=== PATIENT | male | born 1985 | race African-American/Black ===

== ENCOUNTER → 2016-05-02 | Outpatient (REF) | payer OTHER ==
[2016-05-02 13:27] LABS: ALBUMIN 4.1 GM/DL (3.2-5.2); ALBUMIN/GLOBULIN RATIO 1.37 (1.00-1.93); ALKALINE PHOSPHATASE 93 U/L (45-117); ALT/SGPT 35 U/L (12-78); ANION GAP 9 MEQ/L (8-16); AST/SGOT 29 U/L (15-37); BILIRUBIN,TOTAL 0.3 MG/DL (0.2-1.0); BLOOD UREA NITROGEN 9 MG/DL (7-18); CALCIUM LEVEL 8.8 MG/DL (8.5-10.1); CARBON DIOXIDE LEVEL 26 MEQ/L (21-32); CHLORIDE LEVEL 108 MEQ/L (98-107); CHOLESTEROL LEVEL 160 MG/DL (<200); GLOMERULAR FILTRATION RATE > 60.0 (>60); GLUCOSE, FASTING 104 MG/DL (70-105); POTASSIUM SERUM 4.2 MEQ/L (3.5-5.1); SODIUM LEVEL 143 MEQ/L (136-145); TOTAL PROTEIN 7.1 GM/DL (6.4-8.2); TRIGLYCERIDES LEVEL 76 MG/DL (<150)
[2016-05-03 10:56] LABS: HEPATITIS B SURFACE ANTIBODY POSITIVE (POSITIVE)
== END ==
LOC: M SFHCPLAZ 10:19
PROVIDERS: ATTEND Internal Medicine Infectious Disease
DX: B20 Human immunodeficiency virus [HIV] disease (principal); Z72.52 High risk homosexual behavior; Z13.220 Encounter for screening for lipoid disorders

== ENCOUNTER 2016-05-28 18:15 | Emergency (ER) | payer MEDICAID, OTHER, SELFPAY ==
[2016-05-28 18:17] VITALS: BP 117/70
[2016-05-28] MEDS ORDERED: CLIN1CAP5 PO (18:30)
[2016-05-28] MEDS ORDERED: IBUP600T26 PO (18:30)
[2016-05-28] MEDS ORDERED: NORCOTAB PO (19:17)
== END 2016-05-28 19:29 | disposition home or self-care (01) ==
LOC: M ED 19:26
DX: K02.9 Dental caries, unspecified (principal); R22.1 Localized swelling, mass and lump, neck; R51 Headache; Z87.891 Personal history of nicotine dependence

== ENCOUNTER 2016-07-08 15:48 | Emergency (ER) | payer MEDICAID, OTHER ==
[~2016-07-08] VITALS: Ht 177.8 cm; Wt 81.6 kg
[~2016-07-08 15:48] MED LIST: CLIN1CAP5 PO; IBUP600T26 PO; NORCOTAB PO
[2016-07-08 15:49] VITALS: BP 127/78
[2016-07-08] MEDS ORDERED: NORCOTAB PO (16:09)
[2016-07-08] MEDS ORDERED: AMOX500C PO (16:09)
[2016-07-08] MEDS ORDERED: NORCO, ANEXSIA 5/325MG TABLET (HYDROcodone/ACETAMINOPHEN) PO ONE (16:15)
== END 2016-07-08 16:41 | disposition home or self-care (01) ==
LOC: M ED 16:28
DX: K02.9 Dental caries, unspecified (principal); K13.79 Other lesions of oral mucosa; R50.9 Fever, unspecified; F17.200 Nicotine dependence, unspecified, uncomplicated

== ENCOUNTER → 2016-09-26 | Outpatient (REF) | payer OTHER ==
[~2016-09-26] MED LIST changes: +AMOX500C PO; +CHERSYP3 PO; +CLIN150C14 PO; -CLIN1CAP5 PO; +DRON5CAP6; +HYDR-3713; +IBUP-1022 PO; -IBUP600T26 PO; +PRED20TA PO; +TESS100C PO
[2016-09-26 12:16] LABS: ALBUMIN 3.8 GM/DL (3.2-5.2); ALBUMIN/GLOBULIN RATIO 1.15 (1.00-1.93); ALKALINE PHOSPHATASE 88 U/L (45-117); ALT/SGPT 26 U/L (12-78); ANION GAP 7 MEQ/L (8-16); AST/SGOT 23 U/L (15-37); BILIRUBIN,TOTAL 0.3 MG/DL (0.2-1.0); BLOOD UREA NITROGEN 10 MG/DL (7-18); CALCIUM LEVEL 8.9 MG/DL (8.5-10.1); CARBON DIOXIDE LEVEL 28 MEQ/L (21-32); CHLORIDE LEVEL 101 MEQ/L (98-107); CREATININE FOR GFR 0.83 MG/DL (0.70-1.30); GLOMERULAR FILTRATION RATE > 60.0 (>60); GLUCOSE, FASTING 98 MG/DL (70-105); POTASSIUM SERUM 3.9 MEQ/L (3.5-5.1); SODIUM LEVEL 136 MEQ/L (136-145); TOTAL PROTEIN 7.1 GM/DL (6.4-8.2)
[2016-10-01 00:06] LABS: %CD3+CD4+CD8+ 1.1 % (Not Estab.); %CD3+CD4+CD8- 30.3 % (Not Estab.); %CD3+CD4-CD8+ 49.2 % (Not Estab.); %CD3+CD4-CD8- 3.2 % (Not Estab.); ABS CD3+CD4+CD8+ 28 /uL (Not Estab.); ABS CD3+CD4+CD8- 758 /uL (Not Estab.); ABS CD3+CD4-CD8+ 1230 /uL (Not Estab.); ABS CD3+CD4-CD8- 80 /uL (Not Estab.); CD4/CD8 NYSDOH RATIO 0.62 (Not Estab.); Eosinophils 6 % (.); HCT 45.9 % (37.5-51.0); HGB 15.4 g/dL (12.6-17.7); Monocytes 6 % (.); Neutrophils 31 % (.); WBC 4.5 x10E3/uL (3.4-10.8)
== END ==
LOC: M LABDRAW1 11:28
PROVIDERS: ATTEND Internal Medicine Infectious Disease
DX: B20 Human immunodeficiency virus [HIV] disease (principal)

== ENCOUNTER → 2016-10-10 | Outpatient (REF) | payer OTHER | LOC: M SFHCPLAZ 14:25 | PROVIDERS: ATTEND Internal Medicine Infectious Disease | DX: Z02.0 Encounter for examination for admission to educational institution (principal) ==

== ENCOUNTER 2016-10-29 18:46 | Emergency (ER) | payer OTHER ==
[~2016-10-29] VITALS: Ht 182.9 cm; Wt 77.3 kg
[~2016-10-29 18:46] MED LIST changes: -CHERSYP3 PO; -DRON5CAP6; -HYDR-3713; -PRED20TA PO; -TESS100C PO
[2016-10-29 18:47] VITALS: BP 101/67
[2016-10-29] MEDS ORDERED: HYDR-3713 (18:54)
[2016-10-29] MEDS ORDERED: DRON5CAP6 (18:54)
[2016-10-29] MEDS ORDERED: IBUPROFEN 800 MG TAB PO ONE (20:45)
[2016-10-29] MEDS ORDERED: PERCOCET 5MG/325MG TAB PO ONE (20:45)
[2017-01-03] MEDS ORDERED: TESS100C PO (23:02)
[2017-01-03] MEDS ORDERED: PRED20TA PO (23:02)
[2017-01-03] MEDS ORDERED: CHERSYP3 PO (23:02)
== END 2016-10-29 21:02 | disposition home or self-care (01) ==
LOC: M ED 18:46
DX: G89.18 Other acute postprocedural pain (principal); Z98.890 Other specified postprocedural states; Z79.2 Long term (current) use of antibiotics; Z79.899 Other long term (current) drug therapy

== ENCOUNTER → 2017-01-15 | Outpatient (REF) | payer OTHER ==
[~2017-01-15] MED LIST changes: +CHERSYP3 PO; +DRON5CAP6; +HYDR-3713; +PRED20TA PO; +TESS100C PO
[2017-01-15 16:14] LABS: ALBUMIN/GLOBULIN RATIO 1.18 (1.00-1.93); ALKALINE PHOSPHATASE 92 U/L (45-117); ALT/SGPT 28 U/L (12-78); ANION GAP 7 MEQ/L (8-16); AST/SGOT 20 U/L (7-37); BILIRUBIN,TOTAL 0.4 MG/DL (0.2-1.0); BLOOD UREA NITROGEN 9 MG/DL (7-18); CALCIUM LEVEL 9.3 MG/DL (8.5-10.1); CARBON DIOXIDE LEVEL 29 MEQ/L (21-32); CHLORIDE LEVEL 104 MEQ/L (98-107); CREATININE FOR GFR 1.01 MG/DL (0.70-1.30); GLOMERULAR FILTRATION RATE > 60.0 (>60); GLUCOSE, FASTING 74 MG/DL (70-105); POTASSIUM SERUM 3.9 MEQ/L (3.5-5.1); SODIUM LEVEL 140 MEQ/L (136-145); TOTAL PROTEIN 7.4 GM/DL (6.4-8.2)
[2017-01-17 10:32] LABS: Eosinophils 2 % (Not Estab.); HCT 42.1 % (37.5-51.0); HGB 14.5 g/dL (12.6-17.7); Monocytes 8 % (Not Estab.); Neutrophils 49 % (Not Estab.); WBC 9.1 x10E3/uL (3.4-10.8)
== END ==
LOC: M SFHCPLAZ 14:53
PROVIDERS: ATTEND Internal Medicine Infectious Disease
DX: B20 Human immunodeficiency virus [HIV] disease (principal)

== ENCOUNTER → 2017-05-15 | Outpatient (REF) | payer OTHER, SELFPAY ==
[2017-05-15 15:54] LABS: APPEARANCE, URINE CLEAR (CLEAR); BACTERIA, URINE AUTO NEGATIVE (NEGATIVE); BILIRUBIN, URINE AUTO NEGATIVE (NEGATIVE); BLOOD, URINE BLOOD NEGATIVE (NEGATIVE); COLOR, URINE YELLOW (YELLOW); GLUCOSE, URINE (UA) AUTO NEGATIVE (NEGATIVE); KETONE, URINE AUTO NEGATIVE (NEGATIVE); LEUKOCYTE ESTERASE, URINE AUTO TRACE (NEGATIVE); NITRITE, URINE AUTO NEGATIVE (NEGATIVE); PROTEIN, URINE AUTO NEGATIVE (NEGATIVE); RBC, URINE AUTO 0 /HPF (0-3); SPECIFIC GRAVITY URINE AUTO 1.021 (1.002-1.035); SQUAMOUS EPITHELIAL CELL UR AU 0 /HPF (0-6); UROBILINOGEN, URINE AUTO 0.2 mg/dL (0.0-2.0); WBC, URINE AUTO 1 /HPF (0-3)
[2017-05-15 16:28] LABS: ALBUMIN 4.2 GM/DL (3.2-5.2); ALBUMIN/GLOBULIN RATIO 1.17 (1.00-1.93); ALKALINE PHOSPHATASE 110 U/L (45-117); ALT/SGPT 34 U/L (12-78); ANION GAP 9 MEQ/L (8-16); AST/SGOT 26 U/L (7-37); BILIRUBIN,TOTAL 0.3 MG/DL (0.2-1.0); BLOOD UREA NITROGEN 9 MG/DL (7-18); CARBON DIOXIDE LEVEL 27 MEQ/L (21-32); CHLORIDE LEVEL 106 MEQ/L (98-107); CREATININE FOR GFR 0.92 MG/DL (0.70-1.30); GLOMERULAR FILTRATION RATE > 60.0 (>60); GLUCOSE, FASTING 80 MG/DL (70-100); POTASSIUM SERUM 4.2 MEQ/L (3.5-5.1); SODIUM LEVEL 142 MEQ/L (136-145); TOTAL PROTEIN 7.8 GM/DL (6.4-8.2)
[2017-05-15 17:20] LABS: CHLAMYDIA DNA AMPLIFICATION NEGATIVE (NEGATIVE); GC DNA AMPLIFICATION NEGATIVE (NEGATIVE)
[2017-05-20 14:16] LABS: % CD8 Pos Lymph 44.8 % (12.0-35.5); ABS Basophils 0.1 x10E3/uL (0.0-0.2); ABS Eosinophils 0.3 x10E3/uL (0.0-0.4); ABS Lymphs 3.4 x10E3/uL (0.7-3.1); ABS Monocytes 0.3 x10E3/uL (0.1-0.9); ABS Neutophils 1.9 x10E3/uL (1.4-7.0); Abs CD4 Helper 1156 /uL (359-1519); Abs CD8 Suppres 1523 /uL (109-897); CD4/CD8 Ratio 0.76 (0.92-3.72); Eosinophils 6 % (Not Estab.); HCT 46.9 % (37.5-51.0); HGB 15.8 g/dL (13.0-17.7); HIV-1 RNA PCR QUANT 2 LC550285 <20 copies/mL (.); Immature Grans 0 % (Not Estab.); Lymphocytes 56 % (Not Estab.); MCH 32.4 pg (26.6-33.0); MCHC 33.7 g/dL (31.5-35.7); MCV 96 fL (79-97); Monocytes 5 % (Not Estab.); Neutrophils 32 % (Not Estab.); Platelets 304 x10E3/uL (150-379); QUANTIFERON GOLD TB Negative (Negative); RBC 4.88 x10E6/uL (4.14-5.80); RDW 13.8 % (12.3-15.4); TB Test (QFT) Antigen 0.04 IU/mL (.); TB Test (QFT) Nil 0.04 IU/mL (.); WBC 5.9 x10E3/uL (3.4-10.8)
[2017-05-21 00:06] LABS: CHLAMYDIA PHARYNGEAL APTIMA Negative (Negative); GC PHARYNGEAL APTIMA Negative (Negative)
[2017-05-22 00:06] LABS: RPR Non Reactive (Non Reactive); T PALLIDUM ANTIBODIES Positive (Negative); T PALLIDUM IMMUNOBLOT Positive (Negative)
== END ==
LOC: M SFHCPLAZ 14:35
DX: B20 Human immunodeficiency virus [HIV] disease (principal); Z72.52 High risk homosexual behavior
CPT/HCPCS: 80053

== ENCOUNTER → 2017-05-22 | Outpatient (REF) | payer MEDICAID, OTHER, SELFPAY | LOC: M SFHCPLAZ 13:04 | DX: Z72.52 High risk homosexual behavior (principal); B20 Human immunodeficiency virus [HIV] disease | CPT/HCPCS: 88108 ==

== ENCOUNTER → 2018-03-16 | Outpatient (REF) | payer OTHER ==
[~2018-03-16] MED LIST changes: +DRON5CAP13; -DRON5CAP6
[2018-03-19 00:10] LABS: CHLAMYDIA PHARYNGEAL APTIMA Negative (Negative); GC PHARYNGEAL APTIMA Negative (Negative)
== END ==
LOC: M SFHCPLAZ 13:37
PROVIDERS: ATTEND Internal Medicine Infectious Disease
DX: B20 Human immunodeficiency virus [HIV] disease (principal)

== ENCOUNTER → 2018-06-01 | Outpatient (REF) | payer OTHER ==
[2018-06-04 08:06] LABS: CHLAMYDIA PHARYNGEAL APTIMA Negative (Negative); CHLAMYDIA RECTAL APTIMA Negative (Negative); GC PHARYNGEAL APTIMA Negative (Negative); GC RECTAL APTIMA Negative (Negative)
== END ==
LOC: M SFHCPLAZ 15:40
PROVIDERS: ATTEND Internal Medicine Infectious Disease
DX: B20 Human immunodeficiency virus [HIV] disease (principal)

== ENCOUNTER 2018-06-26 01:34 | Emergency (ER) | payer OTHER ==
[~2018-06-26] VITALS: Ht 182.9 cm; Wt 90.9 kg
[2018-06-26 01:34] VITALS: BP 124/66
[~2018-06-26 01:34] MED LIST changes: +HYDR-3715 PO; -NORCOTAB PO
[2018-06-26] MEDS ORDERED: ERYT-52 PO (03:19)
[2018-06-26] MEDS ORDERED: ERYTHROMYCIN 250 MG TABLET PO ONE (03:30)
[2018-06-26] MEDS ORDERED: ERYTHROMYCIN 250 MG TABLET PO SCH (03:30)
[2018-06-26] MEDS ORDERED: KETOROLAC 60 MG/2 ML VIAL (J1885) IM ONE (03:30)
== END 2018-06-26 03:48 | disposition home or self-care (01) ==
LOC: M ED 01:34
DX: A55 Chlamydial lymphogranuloma (venereum) (principal); B20 Human immunodeficiency virus [HIV] disease; Z86.19 Personal history of other infectious and parasitic diseases; Z86.59 Personal history of other mental and behavioral disorders; Z72.0 Tobacco use
CPT/HCPCS: 96372; 99283; J1885

== ENCOUNTER → 2018-06-29 | Outpatient (REF) | payer OTHER ==
[~2018-06-29] MED LIST changes: +ERYT-52 PO
[2018-06-30 15:15] LABS: CHLAMYDIA DNA AMPLIFICATION NEGATIVE (NEGATIVE); GC DNA AMPLIFICATION NEGATIVE (NEGATIVE)
== END ==
LOC: M SFHCPLAZ 11:48
PROVIDERS: ATTEND Internal Medicine Infectious Disease
DX: A55 Chlamydial lymphogranuloma (venereum) (principal)

== ENCOUNTER → 2018-07-30 | Outpatient (CLI) | payer OTHER ==
[~2018-07-30] MED LIST changes: +ISOVUE-370 76% 100ML VIAL (Q9967) As Ordered ONE
--- NOTE | 2018-07-30 15:59 | REP ---
Clinical: Chlamydial lymphogranuloma Technique: Axial contrast enhanced images from the lung bases to the pubic symphysis using 100 ml Isovue 370 intravenous contrast material with precontrast images of the abdomen as well as coronal and sagittal re-formations. Findings: Lung bases are clear. Visualized heart and pericardium normal. Liver, spleen, pancreas, gallbladder, bilateral adrenal glands and kidneys are normal. The enteric system is without obstruction or acute inflammatory process. Normal terminal ileum and appendix are identified in the right lower quadrant. Pelvis demonstrates normal bladder and age appropriate prostate/seminal vesicles. No pelvic fluid or ascites. No intraperitoneal or retroperitoneal adenopathy. Abdominal aorta and vasculature without aneurysm or dissection. Musculoskeletal structures are intact without focal osseous abnormality. Significant bilateral inguinal adenopathy with surrounding inflammatory stranding and heterogeneous enhancement. Left-sided lymph nodes measure up to roughly 2.4 cm. Impression: 1. No acute abdominopelvic pathology appreciated. 2. Significant bilateral inguinal adenopathy. Electronically Signed by Shubham Anne MD 07/30/2018 03:51 P
== END ==
LOC: M RAD 15:13
PROVIDERS: ATTEND Internal Medicine Infectious Disease
DX: A55 Chlamydial lymphogranuloma (venereum) (principal)
CPT/HCPCS: 74178; Q9967

== ENCOUNTER → 2018-08-13 | Outpatient (REF) | payer OTHER ==
[~2018-08-13] MED LIST changes: -ISOVUE-370 76% 100ML VIAL (Q9967) As Ordered ONE
[2018-08-13 16:19] LABS: APPEARANCE, URINE CLEAR (CLEAR); BACTERIA, URINE AUTO NEGATIVE (NEGATIVE); BILIRUBIN, URINE AUTO NEGATIVE (NEGATIVE); BLOOD, URINE BLOOD NEGATIVE (NEGATIVE); COLOR, URINE YELLOW (YELLOW); GLUCOSE, URINE (UA) AUTO NEGATIVE (NEGATIVE); KETONE, URINE AUTO NEGATIVE (NEGATIVE); LEUKOCYTE ESTERASE, URINE AUTO NEGATIVE (NEGATIVE); NITRITE, URINE AUTO NEGATIVE (NEGATIVE); PROTEIN, URINE AUTO NEGATIVE (NEGATIVE); RBC, URINE AUTO 1 /HPF (0-3); SPECIFIC GRAVITY URINE AUTO 1.014 (1.002-1.035); SQUAMOUS EPITHELIAL CELL UR AU 0 /HPF (0-6); UROBILINOGEN, URINE AUTO 0.2 mg/dL (0.0-2.0); WBC, URINE AUTO 0 /HPF (0-3)
[2018-08-13 18:52] LABS: CHLAMYDIA DNA AMPLIFICATION NEGATIVE (NEGATIVE); GC DNA AMPLIFICATION NEGATIVE (NEGATIVE)
[2018-08-18 10:39] LABS: CHLAMYDIA PHARYNGEAL APTIMA Negative (Negative); GC PHARYNGEAL APTIMA Negative (Negative)
== END ==
LOC: M SFHCPLAZ 15:44
PROVIDERS: ATTEND Internal Medicine Infectious Disease
DX: A55 Chlamydial lymphogranuloma (venereum) (principal)

== ENCOUNTER → 2018-10-19 | Outpatient (REF) | payer OTHER ==
[2018-10-19 16:32] LABS: ALBUMIN 4.1 GM/DL (3.2-5.2); ALT/SGPT 52 U/L (12-78); BILIRUBIN,TOTAL 0.1 MG/DL (0.2-1.0); BLOOD UREA NITROGEN 13 MG/DL (7-18); CALCIUM LEVEL 9.5 MG/DL (8.5-10.1); CARBON DIOXIDE LEVEL 31 MEQ/L (21-32); CHLORIDE LEVEL 105 MEQ/L (98-107); CREATININE FOR GFR 0.93 MG/DL (0.70-1.30); GLOMERULAR FILTRATION RATE > 60.0 (>60); GLUCOSE, FASTING 91 MG/DL (70-100); POTASSIUM SERUM 4.2 MEQ/L (3.5-5.1); SODIUM LEVEL 142 MEQ/L (136-145); TOTAL PROTEIN 7.8 GM/DL (6.4-8.2)
[2018-10-19 19:39] LABS: CHLAMYDIA DNA AMPLIFICATION NEGATIVE (NEGATIVE); GC DNA AMPLIFICATION NEGATIVE (NEGATIVE)
== END ==
LOC: M SFHCPLAZ 14:08
PROVIDERS: ATTEND Internal Medicine Infectious Disease
DX: A55 Chlamydial lymphogranuloma (venereum) (principal); B20 Human immunodeficiency virus [HIV] disease

== ENCOUNTER → 2019-05-17 | Outpatient (REF) | payer OTHER, MEDICAID ==
[2019-05-17 13:33] LABS: APPEARANCE, URINE CLEAR (CLEAR); BACTERIA, URINE AUTO NEGATIVE (NEGATIVE); BILIRUBIN, URINE AUTO NEGATIVE (NEGATIVE); BLOOD, URINE BLOOD NEGATIVE (NEGATIVE); COLOR, URINE YELLOW (YELLOW); GLUCOSE, URINE (UA) AUTO NEGATIVE (NEGATIVE); KETONE, URINE AUTO TRACE mg/dL (NEGATIVE); LEUKOCYTE ESTERASE, URINE AUTO NEGATIVE (NEGATIVE); NITRITE, URINE AUTO NEGATIVE (NEGATIVE); PROTEIN, URINE AUTO NEGATIVE (NEGATIVE); RBC, URINE AUTO 0 /HPF (0-3); SPECIFIC GRAVITY URINE AUTO 1.024 (1.002-1.035); SQUAMOUS EPITHELIAL CELL UR AU 0 /HPF (0-6); WBC, URINE AUTO 0 /HPF (0-3)
[2019-05-17 15:35] LABS: CHLAMYDIA DNA AMPLIFICATION NEGATIVE (NEGATIVE); GC DNA AMPLIFICATION NEGATIVE (NEGATIVE)
== END ==
LOC: M SFHCPLAZ 13:10
PROVIDERS: ATTEND Internal Medicine Infectious Disease
DX: B20 Human immunodeficiency virus [HIV] disease (principal); R50.9 Fever, unspecified
CPT/HCPCS: 81001; 87486; 87491; 87581; 87591; 87633; 87798; U0002

== ENCOUNTER → 2019-08-17 | Outpatient (REF) | payer OTHER ==
[~2019-08-17] MED LIST changes: -CLIN150C14 PO; +CLIN150C15 PO
[2019-08-17 12:02] LABS: APPEARANCE, URINE CLEAR (CLEAR); BACTERIA, URINE AUTO NEGATIVE (NEGATIVE); BILIRUBIN, URINE AUTO NEGATIVE (NEGATIVE); BLOOD, URINE BLOOD NEGATIVE (NEGATIVE); COLOR, URINE YELLOW (YELLOW); GLUCOSE, URINE (UA) AUTO NEGATIVE (NEGATIVE); KETONE, URINE AUTO TRACE mg/dL (NEGATIVE); LEUKOCYTE ESTERASE, URINE AUTO NEGATIVE (NEGATIVE); NITRITE, URINE AUTO NEGATIVE (NEGATIVE); PROTEIN, URINE AUTO NEGATIVE (NEGATIVE); RBC, URINE AUTO 0 /HPF (0-3); SPECIFIC GRAVITY URINE AUTO 1.016 (1.002-1.035); SQUAMOUS EPITHELIAL CELL UR AU 0 /HPF (0-6); UROBILINOGEN, URINE AUTO 0.2 mg/dL (0.0-2.0); WBC, URINE AUTO 0 /HPF (0-3)
[2019-08-17 13:28] LABS: ALBUMIN 3.8 GM/DL (3.2-5.2); ALT/SGPT 51 U/L (12-78); BILIRUBIN,TOTAL 0.4 MG/DL (0.2-1.0); BLOOD UREA NITROGEN 13 MG/DL (7-18); CALCIUM LEVEL 8.6 MG/DL (8.5-10.1); CARBON DIOXIDE LEVEL 29 MEQ/L (21-32); CHLORIDE LEVEL 104 MEQ/L (98-107); CHOLESTEROL LEVEL 159 MG/DL (<200); CHOLESTEROL RISK RATIO 2.523 (<5); CREATININE FOR GFR 0.89 MG/DL (0.70-1.30); GLOMERULAR FILTRATION RATE > 60.0 (>60); GLUCOSE, FASTING 172 MG/DL (70-100); HDL CHOLESTEROL 63 MG/DL (>40); LDL CHOLESTEROL 86 MG/DL (<100); NON-HDL-C 96 MG/DL; SODIUM LEVEL 139 MEQ/L (136-145); TOTAL PROTEIN 7.1 GM/DL (6.4-8.2); TRIGLYCERIDES LEVEL 52 MG/DL (<150)
[2019-08-17 15:25] LABS: CHLAMYDIA DNA AMPLIFICATION NEGATIVE (NEGATIVE); GC DNA AMPLIFICATION NEGATIVE (NEGATIVE)
[2019-08-20 02:07] LABS: HIV-1 RNA PCR QUANT 2 LC550285 <20 copies/mL (.)
[2019-08-23 07:52] LABS: % CD8 Pos Lymph 45.9 % (12.0-35.5); %CD4 Pos Lymphs 33.4 % (30.8-58.5); ABS Eosinophils 0.2 x10E3/uL (0.0-0.4); ABS Lymphs 3.8 x10E3/uL (0.7-3.1); ABS Monocytes 0.4 x10E3/uL (0.1-0.9); ABS Neutophils 2.1 x10E3/uL (1.4-7.0); Abs CD4 Helper 1269 /uL (359-1519); Abs CD8 Suppres 1744 /uL (109-897); CD4/CD8 Ratio 0.73 (0.92-3.72); Eosinophils 3 % (Not Estab.); HCT 42.9 % (37.5-51.0); HGB 14.5 g/dL (13.0-17.7); Immature Grans 0 % (Not Estab.); Lymphocytes 58 % (Not Estab.); MCH 31.7 pg (26.6-33.0); MCHC 33.8 g/dL (31.5-35.7); MCV 94 fL (79-97); Monocytes 6 % (Not Estab.); Neutrophils 32 % (Not Estab.); Platelets 252 x10E3/uL (150-450); RBC 4.58 x10E6/uL (4.14-5.80); RDW 12.5 % (11.6-15.4); WBC 6.5 x10E3/uL (3.4-10.8)
== END ==
LOC: M SFHCPLAZ 10:26
PROVIDERS: ATTEND Internal Medicine Infectious Disease
DX: B20 Human immunodeficiency virus [HIV] disease (principal); Z13.220 Encounter for screening for lipoid disorders

== ENCOUNTER → 2019-09-21 | Outpatient (REF) | payer OTHER ==
[~2019-09-21] MED LIST changes: +CLIN150C14 PO; -CLIN150C15 PO
[2019-09-21 15:14] LABS: CHLAMYDIA DNA AMPLIFICATION POSITIVE (NEGATIVE); GC DNA AMPLIFICATION POSITIVE (NEGATIVE)
[2019-11-17 09:45] LABS: CHLAMYDIA PHARYNGEAL APTIMA SEE SEPARATE REPORT; GC PHARYNGEAL APTIMA SEE SEPARATE REPORT
== END ==
LOC: M SFHCPLAZ 12:47
PROVIDERS: ATTEND Internal Medicine Infectious Disease
DX: A55 Chlamydial lymphogranuloma (venereum) (principal)

== ENCOUNTER → 2020-01-04 | Outpatient (REF) | payer OTHER ==
[2020-01-04 16:20] LABS: ALBUMIN 4.3 GM/DL (3.2-5.2); ALT/SGPT 34 U/L (12-78); BILIRUBIN,TOTAL 0.6 MG/DL (0.2-1.0); BLOOD UREA NITROGEN 9 MG/DL (7-18); CALCIUM LEVEL 9.3 MG/DL (8.5-10.1); CARBON DIOXIDE LEVEL 29 MEQ/L (21-32); CHLORIDE LEVEL 103 MEQ/L (98-107); CREATININE FOR GFR 0.92 MG/DL (0.70-1.30); GLOMERULAR FILTRATION RATE > 60.0 (>60); GLUCOSE, FASTING 111 MG/DL (70-100); POTASSIUM SERUM 4.1 MEQ/L (3.5-5.1); SODIUM LEVEL 137 MEQ/L (136-145); TOTAL PROTEIN 7.6 GM/DL (6.4-8.2)
[2020-01-04 17:55] LABS: HEMOGLOBIN A1c 5.6 %
[2020-01-07 15:15] LABS: % CD8 Pos Lymph 41.5 % (12.0-35.5); %CD4 Pos Lymphs 42.4 % (30.8-58.5); ABS Basophils 0.1 x10E3/uL (0.0-0.2); ABS Eosinophils 0.3 x10E3/uL (0.0-0.4); ABS Lymphs 3.9 x10E3/uL (0.7-3.1); ABS Monocytes 0.5 x10E3/uL (0.1-0.9); ABS Neutophils 1.5 x10E3/uL (1.4-7.0); Abs CD4 Helper 1654 /uL (359-1519); Abs CD8 Suppres 1619 /uL (109-897); CD4/CD8 Ratio 1.02 (0.92-3.72); Eosinophils 5 % (Not Estab.); HCT 45.8 % (37.5-51.0); HGB 15.1 g/dL (13.0-17.7); HIV-1 RNA PCR QUANT 2 LC550285 <20 copies/mL (.); Immature Grans 0 % (Not Estab.); Lymphocytes 62 % (Not Estab.); MCH 32.1 pg (26.6-33.0); MCV 97 fL (79-97); Monocytes 7 % (Not Estab.); Neutrophils 25 % (Not Estab.); Platelets 279 x10E3/uL (150-450); RBC 4.71 x10E6/uL (4.14-5.80); RDW 12.1 % (11.6-15.4); RPR Non Reactive (Non Reactive); WBC 6.2 x10E3/uL (3.4-10.8)
== END ==
LOC: M SFHCPLAZ 11:40
PROVIDERS: ATTEND Internal Medicine Infectious Disease
DX: B20 Human immunodeficiency virus [HIV] disease (principal); R73.9 Hyperglycemia, unspecified; Z86.19 Personal history of other infectious and parasitic diseases; Z20.828 Contact with and (suspected) exposure to other viral communicable diseases
CPT/HCPCS: 36415; 80053; 83036; 86360; 86592; 87536; U0003

== ENCOUNTER → 2020-03-20 | Outpatient (REF) | payer OTHER ==
[~2020-03-20] MED LIST changes: -CLIN150C14 PO; +CLIN150C15 PO
== END ==
LOC: M SFHCPLAZ 12:14
PROVIDERS: ATTEND Internal Medicine Infectious Disease
DX: R09.81 Nasal congestion (principal)

== ENCOUNTER → 2020-05-25 | Outpatient (REF) | payer OTHER ==
[2020-05-25 17:32] LABS: ALT/SGPT 58 U/L (12-78); BILIRUBIN,TOTAL 0.3 MG/DL (0.2-1.0); BLOOD UREA NITROGEN 9 MG/DL (7-18); CARBON DIOXIDE LEVEL 33 MEQ/L (21-32); CHLORIDE LEVEL 105 MEQ/L (98-107); CREATININE FOR GFR 0.86 MG/DL (0.70-1.30); GLOMERULAR FILTRATION RATE > 60.0 (>60); GLUCOSE, FASTING 152 MG/DL (70-100); POTASSIUM SERUM 4.1 MEQ/L (3.5-5.1); SODIUM LEVEL 140 MEQ/L (136-145); TOTAL PROTEIN 6.8 GM/DL (6.4-8.2)
[2020-05-25 18:21] LABS: HEPATITIS C VIRUS ABY INDEX < 0.0 INDEX (<0.8)
[2020-05-25 19:56] LABS: CHLAMYDIA DNA AMPLIFICATION NEGATIVE (NEGATIVE); GC DNA AMPLIFICATION NEGATIVE (NEGATIVE)
== END ==
LOC: M SFHCPLAZ 13:18
PROVIDERS: ATTEND Internal Medicine Infectious Disease
DX: B20 Human immunodeficiency virus [HIV] disease (principal)

== ENCOUNTER → 2020-06-08 | Outpatient (REF) | payer OTHER ==
[2020-06-08 16:33] LABS: AMPHETAMINES URINE REFLEX NEGATIVE (NEGATIVE); BARBITURATES URINE REFLEX NEGATIVE (NEGATIVE); BENZODIAZEPINES URINE REFLEX NEGATIVE (NEGATIVE); CANNABINOIDS URINE REFLEX NEGATIVE (NEGATIVE); COCAINE METABOLITE URINE REFLE NEGATIVE (NEGATIVE); METHADONE URINE REFLEX NEGATIVE (NEGATIVE); OPIATES URINE REFLEX NEGATIVE (NEGATIVE); PHENCYCLIDINE URINE REFLEX NEGATIVE (NEGATIVE)
== END ==
LOC: M SFHCPLAZ 12:55
PROVIDERS: ATTEND Internal Medicine Infectious Disease
DX: F19.90 Other psychoactive substance use, unspecified, uncomplicated (principal)

== ENCOUNTER → 2020-10-02 | Outpatient (CLI) | payer OTHER ==
[2020-10-02 14:32] LABS: HEMOGLOBIN A1c 5.7 %
[2020-10-02 14:53] LABS: ALT/SGPT 41 U/L (12-78); BILIRUBIN,TOTAL 0.4 MG/DL (0.2-1.0); BLOOD UREA NITROGEN 13 MG/DL (7-18); CALCIUM LEVEL 8.7 MG/DL (8.5-10.1); CARBON DIOXIDE LEVEL 28 MEQ/L (21-32); CHLORIDE LEVEL 105 MEQ/L (98-107); CHOLESTEROL LEVEL 171 MG/DL (<200); CHOLESTEROL RISK RATIO 2.898 (<5); CREATININE FOR GFR 0.88 MG/DL (0.70-1.30); GLOMERULAR FILTRATION RATE > 60.0 (>60); GLUCOSE, FASTING 128 MG/DL (70-100); HDL CHOLESTEROL 59 MG/DL (>40); LDL CHOLESTEROL 95 MG/DL (<100); NON-HDL-C 112 MG/DL; POTASSIUM SERUM 4.8 MEQ/L (3.5-5.1); SODIUM LEVEL 138 MEQ/L (136-145); TOTAL PROTEIN 6.8 GM/DL (6.4-8.2); TRIGLYCERIDES LEVEL 83 MG/DL (<150)
[2020-10-03 16:09] LABS: % CD8 Pos Lymph 39.5 % (12.0-35.5); %CD4 Pos Lymphs 37.6 % (30.8-58.5); ABS Basophils 0.1 x10E3/uL (0.0-0.2); ABS Eosinophils 0.5 x10E3/uL (0.0-0.4); ABS Lymphs 3.6 x10E3/uL (0.7-3.1); ABS Monocytes 0.5 x10E3/uL (0.1-0.9); ABS Neutophils 1.8 x10E3/uL (1.4-7.0); Abs CD4 Helper 1354 /uL (359-1519); Abs CD8 Suppres 1422 /uL (109-897); CD4/CD8 Ratio 0.95 (0.92-3.72); Eosinophils 8 % (Not Estab.); HCT 41.5 % (37.5-51.0); HGB 14.4 g/dL (13.0-17.7); HIV-1 RNA PCR QUANT 2 LC550285 <20 copies/mL (.); Immature Grans 0 % (Not Estab.); Lymphocytes 56 % (Not Estab.); MCH 32.5 pg (26.6-33.0); MCHC 34.7 g/dL (31.5-35.7); MCV 94 fL (79-97); Monocytes 8 % (Not Estab.); Neutrophils 27 % (Not Estab.); Platelets 288 x10E3/uL (150-450); RBC 4.43 x10E6/uL (4.14-5.80); RDW 12.5 % (11.6-15.4); WBC 6.5 x10E3/uL (3.4-10.8)
== END ==
LOC: M PLALAB 08:12
PROVIDERS: ATTEND Internal Medicine Infectious Disease
DX: B20 Human immunodeficiency virus [HIV] disease (principal); Z13.1 Encounter for screening for diabetes mellitus

== ENCOUNTER → 2021-02-07 | Outpatient (CLI) | payer MEDICAID ==
[~2021-02-07] MED LIST changes: -CLIN150C15 PO; +CLIN150C17 PO
== END ==
LOC: M OUTALCOH 07:41
PROVIDERS: ATTEND Psychiatry & Neurology Psychiatry
DX: F12.20 Cannabis dependence, uncomplicated (principal)

== ENCOUNTER 2021-02-26 11:24 | Outpatient (RCR) | payer MEDICAID | END 2021-03-02 | LOC: M OUTALCOH 11:24 | PROVIDERS: ATTEND Psychiatry & Neurology Psychiatry | DX: F12.20 Cannabis dependence, uncomplicated (principal); Z72.0 Tobacco use ==

== ENCOUNTER → 2021-12-14 | Outpatient (CLI) | payer MEDICAID ==
[~2021-12-14] MED LIST changes: -ERYT-52 PO; +ERYT-88 PO
[2021-12-14 15:55] LABS: ALBUMIN 3.7 GM/DL (3.2-5.2); ALT/SGPT 29 U/L (12-78); BILIRUBIN,TOTAL 0.4 MG/DL (0.2-1.0); BLOOD UREA NITROGEN 9 MG/DL (7-18); CALCIUM LEVEL 9.3 MG/DL (8.5-10.1); CARBON DIOXIDE LEVEL 32 MEQ/L (21-32); CHLORIDE LEVEL 105 MEQ/L (98-107); CREATININE FOR GFR 0.86 MG/DL (0.70-1.30); GLOMERULAR FILTRATION RATE > 60.0 (>60); GLUCOSE, FASTING 100 MG/DL (70-100); POTASSIUM SERUM 4.1 MEQ/L (3.5-5.1); SODIUM LEVEL 138 MEQ/L (136-145); TOTAL PROTEIN 7.1 GM/DL (6.4-8.2)
[2021-12-18 02:07] LABS: % CD8 Pos Lymph 42.9 % (12.0-35.5); %CD4 Pos Lymphs 36.1 % (30.8-58.5); ABS Eosinophils 0.2 x10E3/uL (0.0-0.4); ABS Lymphs 2.8 x10E3/uL (0.7-3.1); ABS Monocytes 0.3 x10E3/uL (0.1-0.9); ABS Neutophils 1.4 x10E3/uL (1.4-7.0); Abs CD4 Helper 1011 /uL (359-1519); Abs CD8 Suppres 1201 /uL (109-897); CD4/CD8 Ratio 0.84 (0.92-3.72); Eosinophils 4 % (Not Estab.); HCT 42.1 % (37.5-51.0); HGB 14.3 g/dL (13.0-17.7); HIV-1 RNA PCR QUANT 1 LC162545 20 copies/mL (.); HIV-1 RNA PCR QUANT 2 LC162545 1.301 (.); Immature Grans 0 % (Not Estab.); Lymphocytes 59 % (Not Estab.); MCV 94 fL (79-97); Monocytes 6 % (Not Estab.); Neutrophils 30 % (Not Estab.); Platelets 417 x10E3/uL (150-450); RBC 4.47 x10E6/uL (4.14-5.80); RDW 11.9 % (11.6-15.4); WBC 4.8 x10E3/uL (3.4-10.8)
== END ==
LOC: M PLALAB 13:24
PROVIDERS: ATTEND Internal Medicine Infectious Disease
DX: Z72.52 High risk homosexual behavior (principal)

== ENCOUNTER → 2022-03-25 | Outpatient (CLI) | payer OTHER ==
[2022-03-25 18:14] LABS: APPEARANCE, URINE MANUAL CLEAR (CLEAR); COLOR, URINE MANUAL YELLOW (YELLOW)
[2022-03-25 18:15] LABS: BILIRUBIN, URINE MANUAL NEGATIVE (NEGATIVE); GLUCOSE, URINE (UA) MANUAL NEGATIVE (NEGATIVE); KETONE, URINE MANUAL NEGATIVE (NEGATIVE); LEUKOCYTE ESTERASE, URINE MAN POSITIVE (NEGATIVE); NITRITE, URINE MANUAL NEGATIVE (NEGATIVE); PROTEIN, URINE MANUAL NEGATIVE (NEGATIVE); SPECIFIC GRAVITY,URINE MANUAL 1.025 (1.002-1.035); UROBILINOGEN, URINE MANUAL NORMAL (NORMAL)
[2022-03-25 18:16] LABS: BLOOD URINE MANUAL POSITIVE (NEGATIVE)
[2022-03-25 18:36] LABS: BACTERIA, URINE NONE SEEN; HYALINE CAST, URINE NONE SEEN /lpf (0-1); MUCUS, URINE SMALL AMOUNT (NEGATIVE); SQUAMOUS EPITHELIAL CELL URINE SMALL AMOUNT /hpf (SMALL AMT); WBC, URINE 20-30 /hpf (0-3)
[2022-03-25 19:21] LABS: GC DNA AMPLIFICATION NEGATIVE (NEGATIVE)
== END ==
LOC: M PLAIMG 13:18
PROVIDERS: ATTEND Internal Medicine Infectious Disease
DX: R10.31 Right lower quadrant pain (principal); B20 Human immunodeficiency virus [HIV] disease; Z72.52 High risk homosexual behavior

== ENCOUNTER → 2022-05-18 | Outpatient (REF) | payer OTHER ==
[2022-05-18 20:09] LABS: APPEARANCE, URINE HAZY (CLEAR); BACTERIA, URINE AUTO 1+ (NEGATIVE); BILIRUBIN, URINE AUTO NEGATIVE (NEGATIVE); BLOOD, URINE BLOOD NEGATIVE (NEGATIVE); COLOR, URINE YELLOW (YELLOW); GLUCOSE, URINE (UA) AUTO NEGATIVE (NEGATIVE); KETONE, URINE AUTO NEGATIVE (NEGATIVE); LEUKOCYTE ESTERASE, URINE AUTO NEGATIVE (NEGATIVE); NITRITE, URINE AUTO POSITIVE (NEGATIVE); PROTEIN, URINE AUTO NEGATIVE (NEGATIVE); RBC, URINE AUTO 2 /HPF (0-3); SPECIFIC GRAVITY URINE AUTO 1.016 (1.002-1.035); SQUAMOUS EPITHELIAL CELL UR AU 0 /HPF (0-6); UROBILINOGEN, URINE AUTO 0.2 mg/dL (0.0-2.0); WBC, URINE AUTO 3 /HPF (0-3)
== END ==
LOC: M LAB REF 19:51
PROVIDERS: ATTEND Physician Assistant Medical
DX: N39.0 Urinary tract infection, site not specified (principal)

== ENCOUNTER 2022-11-12 18:14 | Emergency (ER) | payer OTHER ==
[~2022-11-12] VITALS: Ht 180.3 cm; Wt 87.4 kg
[2022-11-12 18:14] VITALS: BP 118/61; TEMP 98.1; O2SAT 99
[2022-11-13] MEDS ORDERED: BIKT1TAB (09:23)
[2022-11-13] MEDS ORDERED: VENTAER INH (11:27)
[2022-11-13] MEDS ORDERED: PRED20TA PO (11:27)
== END 2022-11-12 19:42 | disposition left against medical advice (07) ==
LOC: M ED 18:14
DX: Z53.21 Procedure and treatment not carried out due to patient leaving prior to being seen by health care provider (principal)

== ENCOUNTER 2022-11-13 09:16 | Emergency (ER) | payer OTHER ==
[~2022-11-13] VITALS: Ht 180.3 cm; Wt 85.7 kg
[2022-11-13] MEDS ORDERED: BIKT1TAB (09:23)
[2022-11-13] MEDS ORDERED: ALBUTEROL 90 MCG/ACT 8GM HFA INHALER INH ONE (10:30)
[2022-11-13 11:10] LABS: RSV AMPLIFICATION NEGATIVE (NEGATIVE)
[2022-11-13] MEDS ORDERED: VENTAER INH (11:27)
[2022-11-13] MEDS ORDERED: PRED20TA PO (11:27)
[2022-11-13 11:42] VITALS: BP 113/67; TEMP 98.7; O2SAT 98
== END 2022-11-13 11:47 | disposition home or self-care (01) ==
LOC: M ED 09:16
DX: J45.901 Unspecified asthma with (acute) exacerbation (principal); Z20.828 Contact with and (suspected) exposure to other viral communicable diseases; Z21 Asymptomatic human immunodeficiency virus [HIV] infection status; Z79.52 Long term (current) use of systemic steroids; Z79.899 Other long term (current) drug therapy

== ENCOUNTER → 2022-12-09 | Outpatient (CLI) | payer OTHER ==
[~2022-12-09] MED LIST changes: +BIKT1TAB; +VENTAER INH
[2022-12-09 13:56] LABS: HEMATOCRIT 46.5 % (42.0-52.0); HEMOGLOBIN 15.5 g/dl (13.5-17.5); MEAN CORPUSCULAR HGB CONC 33.3 g/dl (32.0-36.5); MEAN CORPUSCULAR VOLUME 95.9 fl (80.0-96.0); PLATELET COUNT, AUTOMATED 251 10^3/uL (150-450); RED BLOOD COUNT 4.85 10^6/uL (4.30-6.10); WHITE BLOOD COUNT 7.4 10^3/uL (4.0-10.0)
[2022-12-09 14:28] LABS: THYROID STIMULATING HORMONE 2.279 uIU/ML (0.55-4.78)
[2022-12-09 14:32] LABS: ALBUMIN 4.3 G/DL (3.2-5.2); ALKALINE PHOSPHATASE 94 U/L (46-116); ALT/SGPT 90 U/L (7.0-40); AST/SGOT 48 U/L (<34); BILIRUBIN,TOTAL 0.4 MG/DL (0.3-1.2); BLOOD UREA NITROGEN 9 MG/DL (9-23); CALCIUM LEVEL 9.8 MG/DL (8.5-10.1); CARBON DIOXIDE LEVEL 31 MMOL/L (20-31); CHLORIDE LEVEL 103 MMOL/L (98-107); CHOLESTEROL LEVEL 209 MG/DL (<200); CHOLESTEROL RISK RATIO 2.82 (<5); FREE T4 1.01 NG/DL (0.89-1.76); GLOMERULAR FILTRATION RATE > 60.0 (>60); GLUCOSE, FASTING 91 MG/DL (60-100); HDL CHOLESTEROL 73.9 MG/DL (>40); LDL CHOLESTEROL 122.5 MG/DL (<100); NON-HDL-C 135.1 MG/DL; POTASSIUM SERUM 4.1 MMOL/L (3.5-5.1); SODIUM LEVEL 139 MMOL/L (136-145); TOTAL PROTEIN 7.8 G/DL (5.7-8.2); TRIGLYCERIDES LEVEL 63 MG/DL (<150)
[2022-12-09 15:01] LABS: HEPATITIS C VIRUS ABY INDEX 0.14 INDEX (<0.8)
[2022-12-10 09:09] LABS: % CD8 Pos Lymph 50.8 % (12.0-35.5); %CD4 Pos Lymphs 25.1 % (30.8-58.5); ABS Basophils 0.1 x10E3/uL (0.0-0.2); ABS Eosinophils 0.3 x10E3/uL (0.0-0.4); ABS Lymphs 4.8 x10E3/uL (0.7-3.1); ABS Monocytes 0.5 x10E3/uL (0.1-0.9); ABS Neutophils 1.7 x10E3/uL (1.4-7.0); Abs CD4 Helper 1205 /uL (359-1519); Abs CD8 Suppres 2438 /uL (109-897); CD4/CD8 Ratio 0.49 (0.92-3.72); Eosinophils 5 % (Not Estab.); HCT 45.7 % (37.5-51.0); HEPATITIS B CORE ANTIBODY IGG Negative (Negative); HGB 15.6 g/dL (13.0-17.7); Immature Grans 0 % (Not Estab.); Lymphocytes 64 % (Not Estab.); MCH 31.3 pg (26.6-33.0); MCHC 34.1 g/dL (31.5-35.7); MCV 92 fL (79-97); Monocytes 7 % (Not Estab.); Neutrophils 23 % (Not Estab.); Platelets 271 x10E3/uL (150-450); RBC 4.98 x10E6/uL (4.14-5.80); WBC 7.3 x10E3/uL (3.4-10.8)
== END ==
LOC: M PLALAB 09:07
DX: Z00.01 Encounter for general adult medical examination with abnormal findings (principal)

== ENCOUNTER → 2023-09-30 | Outpatient (REF) | payer OTHER ==
[2023-09-30 17:57] LABS: APPEARANCE, URINE CLEAR (CLEAR); BACTERIA, URINE AUTO NEGATIVE (NEGATIVE); BILIRUBIN, URINE AUTO NEGATIVE (NEGATIVE); BLOOD, URINE BLOOD NEGATIVE (NEGATIVE); COLOR, URINE YELLOW (YELLOW); GLUCOSE, URINE (UA) AUTO NEGATIVE (NEGATIVE); KETONE, URINE AUTO NEGATIVE (NEGATIVE); LEUKOCYTE ESTERASE, URINE AUTO NEGATIVE (NEGATIVE); MUCUS, URINE SMALL (NEGATIVE); NITRITE, URINE AUTO NEGATIVE (NEGATIVE); PROTEIN, URINE AUTO NEGATIVE (NEGATIVE); RBC, URINE AUTO 0 /HPF (0-3); SPECIFIC GRAVITY URINE AUTO 1.024 (1.002-1.035); SQUAMOUS EPITHELIAL CELL UR AU 1 /HPF (0-6); UROBILINOGEN, URINE AUTO 0.2 mg/dL (0.0-2.0); WBC, URINE AUTO 0 /HPF (0-3)
[2023-09-30 19:45] LABS: GC DNA AMPLIFICATION NEGATIVE (NEGATIVE)
== END ==
LOC: M SMT 17:03
PROVIDERS: ATTEND Urology
DX: Z87.440 Personal history of urinary (tract) infections (principal)